=== PATIENT | male | born 1990 | race American Indian/Alaskan Native ===

== ENCOUNTER 2020-11-01 10:12 | Emergency (ER) | payer SELFPAY ==
[2020-11-01 10:24] VITALS: BP 125/83
[2020-11-01] MEDS ORDERED: DIPHtheria,PERTUSSIS(ACELL),TETANUS VACCINE/PF 0.5 ML VIAL IM ONE (10:32)
[2020-11-01] MEDS ORDERED: LIDOCAINE (1%) 10 MG/1 ML VIAL 20 ML MDV INFILTRATI ONE (10:32)
--- NOTE | 2020-11-01 10:37 | Emergency Department Report ---
- General Chief Complaint: Extremity Injury, Upper Stated Complaint: DEEP CUT Time Seen by Provider: 11/01/20 10:23 Source: patient Mode of arrival: Ambulatory Limitations: No Limitations - History of Present Illness Initial Comments: Patient is a 30-year-old male presents emergency room with complaints of a laceration to the left palm that occurred at 3 PM yesterday. He states that he was using a crap game box person to cut a box and accidentally slipped and cut himself. He states initially there was bleeding but it has since improved. He states he has been cleaning it and keeping it covered with gauze. He denies any numbness or weakness. He denies any foreign body sensation. He is moving the hand and fingers without difficulty. He is right-hand dominant. He has a past medical history of PUD. No allergies medications. - Related Data Home Medications Medication Instructions Recorded Confirmed Last Taken Prevacid 1 tab PO DAILY 11/01/20 11/01/20 Unknown Previous Rx's Medication Instructions Recorded Last Taken Type cephALEXin [Keflex] 500 mg PO QID 7 Days #28 cap 11/01/20 Unknown Rx Allergies Allergy/AdvReac Type Severity Reaction Status Date / Time No Known Allergies Allergy Unverified 11/01/20 10:17 ED Review of Systems ROS: Stated complaint: DEEP CUT Other details as noted in HPI Comment: All other systems reviewed and negative ED Past Medical Hx - Past Medical History Previous Medical History?: Yes Additional medical history: Peptic ulcer disease - Surgical History Past Surgical History?: No - Social History Smoking Status: Current Every Day Smoker Substance Use Type: Marijuana, Prescribed - Medications Home Medications: Home Medications Medication Instructions Recorded Confirmed Last Taken Type Prevacid 1 tab PO DAILY 11/01/20 11/01/20 Unknown History cephALEXin [Keflex] 500 mg PO QID 7 Days #28 cap 11/01/20 Unknown Rx ED Physical Exam - General Limitations: No Limitations General appearance: alert, in no apparent distress - Head Head exam: Present: atraumatic, normocephalic - Eye Eye exam: Present: normal appearance - ENT ENT exam: Present: mucous membranes moist - Respiratory Respiratory exam: Absent: respiratory distress, accessory muscle use - Neurological Exam Neurological exam: Present: alert, oriented X3 - Psychiatric Psychiatric exam: Present: normal affect, normal mood - Skin Skin exam: Present: warm, dry, other (2 cm laceration present to the palmar surface of the left hand, no active bleeding, appears clean and dry, small amount of subcutaneous tissue involvement, no muscle/tendon involvement, no foreign body, FROM of the left wrist, hand, and digits, neurovascularly intact) ED Course Vital Signs 11/01/20 10:21 Temperature 97.9 F Pulse Rate 104 H Respiratory 18 Rate Blood Pressure 125/83 O2 Sat by Pulse 98 Oximetry - Laceration /Wound Repair Left Palm Hand Wound Location: upper extremity (palmar surface left hand) Wound Length (cm): 2 Wound's Depth, Shape: superficial Wound Explored: clean Irrigated w/ Saline (ccs): 100 Betadine Prep?: Yes Anesthesia: 1% Lidocaine Volume Anesthetic (ccs): 4 Wound Repaired With: sutures Suture Size/Type: 4:0, proline Number of Sutures: 1 (running) Layer Closure?: No Sterile Dressing Applied?: Yes Progress: Wound irrigated with saline and thoroughly scrubbed with Betadine, no foreign body involvement, no muscle or tendon vomit, 4 cc of 1% lidocaine with epinephrine used as anesthetic, Betadine prep again, sterile gloves worn, sterile drapes used, 4-0 Prolene used for skin closure, one running stitch placed loosely due to delayed closure, patient tolerated well, no complications, bleeding controlled, sterile dressing applied ED Medical Decision Making - Medical Decision Making Patient is a 30-year-old male presents emergency room with complaints of a laceration to the left palm that occurred at 3 PM yesterday. He states that he was using a crap game box person to cut a box and accidentally slipped and cut himself. He states initially there was bleeding but it has since improved. He states he has been cleaning it and keeping it covered with gauze. He denies any numbness or weakness. He denies any foreign body sensation. He is moving the hand and fingers without difficulty. He is right-hand dominant. He has a past medical history of PUD. No allergies medications. VSS. on exam: 2 cm laceration present to the palmar surface of the left hand, no active bleeding, appears clean and dry, small amount of subcutaneous tissue involvement, no muscle/tendon involvement, no foreign body, FROM of the left wrist, hand, and digits, neurovascularly intact. Laceration repaired per procedure note loosely. Patient states his tetanus is already up-to-date. Patient given prescription for Keflex. Advised patient Please take medication as prescribed. May take Tylenol or ibuprofen as needed for any discomfort. Please keep area clean, dry, covered. Wash with antibacterial soap and water twice a day and pat dry. No hot tub, no pool, no soaking in water. Showering is fine. Follow-up with your primary care doctor for reexamination. Sutures need to be removed in 10 days, may do this at the emergency room, urgent care, or primary care doctor. Return to emergency room for any new or worsening symptoms or any signs of infection despite antibiotics. Critical care attestation.: If time is entered above; I have spent that time in minutes in the direct care of this critically ill patient, excluding procedure time. ED Disposition Clinical Impression: Laceration of left palm Qualifiers: Encounter type: initial encounter Qualified Code(s): S61.412A - Laceration without foreign body of left hand, initial encounter Disposition: TO HOME OR SELFCARE Is pt being admited?: No Does the pt Need Aspirin: No Condition: Stable Instructions: Sutures, Brenda, or Adhesive Wound Closure Additional Instructions: Please take medication as prescribed. May take Tylenol or ibuprofen as needed for any discomfort. Please keep area clean, dry, covered. Wash with antibacterial soap and water twice a day and pat dry. No hot tub, no pool, no soaking in water. Showering is fine. Follow-up with your primary care doctor for reexamination. Sutures need to be removed in 10 days, may do this at the emergency room, urgent care, or primary care doctor. Return to emergency room for any new or worsening symptoms or any signs of infection despite antibiotics. Prescriptions: cephALEXin [Keflex] 500 mg PO QID 7 Days #28 cap Referrals: ASHLEIGH PATRICIO MD [Primary Care Provider] - 3-5 Days RANI ACEVES MD [Staff Physician] - 3-5 Days [facility] [Provider Group] - 3-5 Days Time of Disposition: 11:04 Print Language: AZERI
== END 2020-11-01 11:30 | disposition home or self-care (01) ==
LOC: ED 10:12
DX: S61.412A Laceration without foreign body of left hand, initial encounter (principal); F17.200 Nicotine dependence, unspecified, uncomplicated; F12.90 Cannabis use, unspecified, uncomplicated; Z79.899 Other long term (current) drug therapy; W01.0XXA Fall on same level from slipping, tripping and stumbling without subsequent striking against object, initial encounter; Y93.89 Activity, other specified; Y92.89 Other specified places as the place of occurrence of the external cause; Y99.8 Other external cause status

== ENCOUNTER 2021-05-04 07:45 | Emergency (ER) | payer SELFPAY ==
--- NOTE | 2021-05-04 08:18 | XRay Report ---
CHEST 2 VIEWS INDICATION: chest pain. COMPARISON: None FINDINGS: Support devices: None. Heart: Within normal limits. Lungs/pleura: No acute air space or interstitial disease. No pneumothorax. Additional findings: None. IMPRESSION: No acute findings. Normal chest x-ray. Signer Name: Shadi Saldivar Jr, MD Signed: 05/04/2021 8:14 AM Workstation Name: [id number]
--- NOTE | 2021-05-04 08:38 | Emergency Department Report ---
ED Chest Pain HPI - General Chief Complaint: Chest Pain Stated Complaint: CHEST PAIN, UPPER BACK PAIN Time Seen by Provider: 05/04/21 08:07 Source: patient Mode of arrival: Ambulatory Limitations: No Limitations - History of Present Illness Initial Comments: 31-year-old male with past medical history of peptic ulcer disease and tobacco use and marijuana use presents to the ER today with complaints of left upper back and left sided chest pain. Patient states that his symptoms started last night while she was eating. He describes it as a constant but waxing and waning pressure/sharp pain. He states that the pain seems to be worse when he lays on his right side but also when he moves in certain positions. He states that it also hurts when he takes a very deep breath. He states that he feels short of breath when the pain intensifies but is mainly when he is laying on his right side of when he moves in certain position. He states that Max his pain was 8 out of 10. He states when he remains still his pain is 2 out of 10. Currently his pain is 4 out of 10. He denies any coughing, wheezing, nausea, vomiting, UTI symptoms, bowel changes or abdominal pain. 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 He denies any lower extremity swelling or calf pain. He denies any DVT/PE risk factors. He states that his dad has a history of heart disease and his first ME was around his age and so when he started with the pain he got scared and came in to get checked. He denies alcohol abuse, and other than the marijuana use he denies any history of other illicit drug use. MD Complaint: chest pain, other (Left upper back pain) -: days(s) (1) - Related Data Home Medications Medication Instructions Recorded Confirmed Last Taken Prevacid 1 tab PO DAILY 11/01/20 11/01/20 Unknown Previous Rx's Medication Instructions Recorded Last Taken Type cephALEXin [Keflex] 500 mg PO QID 7 Days #28 cap 11/01/20 Unknown Rx Doxycycline Hyclate 100 mg PO Q12HR #14 tablet. 05/04/21 Unknown Rx Allergies Allergy/AdvReac Type Severity Reaction Status Date / Time No Known Allergies Allergy Verified 05/04/21 07:57 Heart Score - HEART Score History: Slightly suspicious EKG: Normal Age: < 45 Risk factors: 1-2 risk factors Troponin: < normal limit HEART Score: 1 - EKG Read Time Time EKG Completed: 07:51 EKG Read Time: 07:56 - Critical Actions Critical Actions: 0-3 pts:0.9-1.7%risk of adverse cardiac event.Candidate for discharge ED Review of Systems ROS: Stated complaint: CHEST PAIN, UPPER BACK PAIN Other details as noted in HPI Comment: All other systems reviewed and negative Constitutional: denies: chills, fever Eyes: denies: eye pain, eye discharge, vision change ENT: denies: ear pain, throat pain Respiratory: shortness of breath. denies: cough, SOB with exertion, SOB at rest, wheezing Cardiovascular: chest pain Gastrointestinal: denies: abdominal pain, nausea, diarrhea, constipation, hematemesis Genitourinary: denies: urgency, dysuria, frequency, hematuria, discharge, testicular pain, testicular mass Musculoskeletal: back pain. denies: joint swelling, arthralgia Skin: denies: rash, lesions, change in color, change in hair/nails, pruritus Neurological: denies: headache, weakness, paresthesias, confusion, abnormal gait, vertigo Psychiatric: denies: anxiety, depression, auditory hallucinations, visual hallucinations, homicidal thoughts Hematological/Lymphatic: denies: easy bleeding, easy bruising, swollen glands ED Past Medical Hx - Past Medical History Previous Medical History?: Yes Additional medical history: Peptic ulcer disease - Surgical History Past Surgical History?: No - Social History Smoking Status: Current Every Day Smoker Substance Use Type: Marijuana, Prescribed - Medications Home Medications: Home Medications Medication Instructions Recorded Confirmed Last Taken Type Prevacid 1 tab PO DAILY 11/01/20 11/01/20 Unknown History cephALEXin [Keflex] 500 mg PO QID 7 Days #28 cap 11/01/20 Unknown Rx Doxycycline Hyclate 100 mg PO Q12HR #14 tablet. 05/04/21 Unknown Rx ED Physical Exam - General Limitations: No Limitations General appearance: alert, in no apparent distress - Head Head exam: Present: atraumatic, normocephalic, normal inspection - Eye Eye exam: Present: normal appearance, PERRL, EOMI Pupils: Present: normal accommodation - ENT ENT exam: Present: normal exam, mucous membranes moist - Neck Neck exam: Present: normal inspection, full ROM. Absent: meningismus - Respiratory Respiratory exam: Present: normal lung sounds bilaterally, chest wall tenderness (Mild tenderness to palpation to the left upper anterior chest wall). Absent: respiratory distress, wheezes, rales, rhonchi - Cardiovascular Cardiovascular Exam: Present: regular rate, normal rhythm, normal heart sounds - GI/Abdominal GI/Abdominal exam: Present: soft. Absent: distended, tenderness, guarding, rebound - Extremities Exam Extremities exam: Present: normal inspection, full ROM. Absent: tenderness, pedal edema, joint swelling, calf tenderness - Back Exam Back exam: Present: normal inspection, full ROM, other (Patient has diffuse muscle/soft tissue tenderness to the left upper and mid thoracic back and posterior chest wall). Absent: vertebral tenderness - Neurological Exam Neurological exam: Present: alert, oriented X3, CN II-XII intact, normal gait. Absent: motor sensory deficit - Psychiatric Psychiatric exam: Present: normal affect, normal mood - Skin Skin exam: Present: intact ED Course Vital Signs 05/04/21 05/04/21 05/04/21 07:56 08:45 09:01 Temperature 98.2 F Pulse Rate 75 68 56 L Respiratory 20 22 23 Rate Blood Pressure 120/80 107/45 112/56 O2 Sat by Pulse 100 97 97 Oximetry 05/04/21 05/04/21 05/04/21 10:01 11:01 12:01 Temperature Pulse Rate 52 L 59 L 52 L Respiratory 13 23 21 Rate Blood Pressure 103/65 99/59 99/65 O2 Sat by Pulse 96 97 95 Oximetry KAMARI score - Kamari Score Age > 65: (0) No Aspirin use within the Past 7 Days: (0) No 3 or more CAD Risk Factors: (0) No 2 or more Angina events in past 24 hrs: (0) No Known CAD with more than 50% Stenosis: (0) No Elevated Cardiac Markers: (0) No ST Deviation Greater than 0.5mm: (0) No KAMARI Score: 0 ED Medical Decision Making - Lab Data Result diagrams: 05/04/21 08:40 05/04/21 08:40 - EKG Data EKG shows normal: sinus rhythm Rate: normal (66) - EKG Data Interpretation: normal EKG 05/04/21 12:18 Repeat EKG done at 1216 -bradycardia with a heart rate of 54 otherwise normal. No STEMI, or acute ischemic changes. - Radiology Data Radiology results: report reviewed Patient: BRAVO HERNANDEZ MR #: [id number] : 1990 Acct:[id number] Age/Sex: 31 / M ADM Date: 05/04/21 Loc: ED Attending Dr: Ordering Physician: JULIA RDZ MD Date of Service: 05/04/21 Procedure(s): XR chest routine 2V Accession Number(s): [id number] cc: JULIA RDZ MD Fluoro Time In Minutes: CHEST 2 VIEWS INDICATION: chest pain. COMPARISON: None FINDINGS: Support devices: None. Heart: Within normal limits. Lungs/pleura: No acute air space or interstitial disease. No pneumothorax. Additional findings: None. IMPRESSION: No acute findings. Normal chest x-ray. Signer Name: Shadi Larkin Jr, MD Signed: 05/04/2021 8:14 AM Workstation Name: [id number] Transcribed By: TTR Dictated By: SHADI LARKIN JR, MD Electronically Authenticated By: SHADI LARKIN JR, MD Signed Date/Time: 05/04/21813 DD/ 2 TD/TT: - Medical Decision Making 1210: Patient currently resting comfortably. He is not in any acute distress. He is not toxic or ill appearing. He is neurologically intact Labs reviewed - CBC/CMP shows no significant abnormalities. He has had 2 - troponin. Lipase is normal. Urinalysis is concerning for UTI, urine culture is pending. EKGs shows no STEMI or acute ischemic changes or significant dysrhythmias. Chest x-ray shows nothing acute. Patient has HEART Score of 1; PERC 0; Patient's history, exam, diagnostic testing and current condition do not suggest that this patient is having acute myocardial infarction, significant arrhythmia, unstable angina, esophageal perforation, pulmonary embolism, aortic dissection, pneumothorax, severe pneumonia, sepsis or other significant pathology that would warrant further testing, continued ED treatment, admission or cardiology or other specialist consultation at this time. The vital signs have been stable. Suspect that his pain could be related to musculoskeletal pain at this time. Patient UA is concerning for UTI, he denies any penile discharge or dysuria and denies any recent new sexual partners but he is a 31-year-old male and will be treated for possible gonorrhea and chlamydia. Discussed lab, imaging and EKG results with patient. Also discussed urinalysis results and concern for possible gonorrhea and chlamydia prophylactic treatment with patient. Recommend to patient to follow-up closely with primary care doctor listed on discharge instructions. Patient expressed understanding of instructions and agree with plan. Patient was stable at time of discharge. Critical care attestation.: If time is entered above; I have spent that time in minutes in the direct care of this critically ill patient, excluding procedure time. ED Disposition Clinical Impression: Nonspecific chest pain, Musculoskeletal pain, UTI (urinary tract infection) Disposition: TO HOME OR SELFCARE Is pt being admited?: No Does the pt Need Aspirin: No Condition: Stable Instructions: Nonspecific Chest Pain, Adult, Urinary Tract Infection, Adult, Musculoskeletal Pain Additional Instructions: Take the doxycycline as prescribed. Take to completion. I recommend taking tylenol and or ibuprofen for pain. Follow up with Primary care physician listed on d/c instructions. Return to ED if worse. Prescriptions: Doxycycline Hyclate 100 mg PO Q12HR #14 tablet. Referrals: [facility] [Provider Group] - 3-5 Days Forms: Work/School Release Form(ED) Time of Disposition: 12:02
[2021-05-04 08:48] LABS: Basophils # (Auto) 0.1 K/mm3 (0.0-0.1); Basophils % (Auto) 0.7 % (0.0-1.8); Eosinophils # (Auto) 0.3 K/mm3 (0.0-0.4); Eosinophils % (Auto) 4.1 % (0.0-4.3); Hematocrit 39.7 % (35.5-45.6); Hemoglobin 13.6 gm/dl (11.8-15.2); Lymphocytes % (Auto) 37.7 % (13.4-35.0); Mean Corpuscular HGB Conc 34 % (32-34); Mean Corpuscular Volume 91 fl (84-94); Monocytes # (Auto) 0.7 K/mm3 (0.0-0.8); Monocytes % (Auto) 9.4 % (0.0-7.3); Platelet Count 249 K/mm3 (140-440); Red Blood Count 4.35 M/mm3 (3.65-5.03); Red Cell Distribution Width 14.4 % (13.2-15.2)
[2021-05-04 09:12] LABS: Alanine Aminotransferase 20 units/L (7-56); Albumin 3.9 g/dL (3.9-5); BUN/Creatinine Ratio 6; Blood Urea Nitrogen 5 mg/dL (9-20); Calcium 9.2 mg/dL (8.4-10.2); Hemolysis Index 7
[2021-05-04 09:36] LABS: Bacteria,Urine 1+ /HPF (Negative); Bilirubin,Urine NEG (Negative); Blood,Urine NEG (Negative); Color,Urine Straw (Yellow); Protein,Urine <15 mg/dL mg/dL (Negative); Urobilinogen,Urine < 2.0 mg/dL (<2.0)
[2021-05-04 09:42] LABS: Amphetamine Screen,Urine Negative; Benzodiazepines Screen,Urine Negative; Cocaine Screen,Urine Negative; Methadone Screen,Urine Negative; Opiate Screen,Urine Negative
[2021-05-04 10:16] LABS: Cannabinoid Screen,Urine PRESUMPTIVE POSITIVE
--- NOTE | 2021-05-04 10:25 | Electrocardiograph Report ---
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
[2021-05-04] MEDS ORDERED: LIDOCAINE-MPF (1%) 10 MG/1 ML VIAL 5 ML INFILTRATI ONE (12:03)
[2021-05-04 12:20] VITALS: BP 99/65
--- NOTE | 2021-05-06 12:13 | Electrocardiograph Report ---
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
== END 2021-05-04 12:29 | disposition home or self-care (01) ==
LOC: ED 07:45
DX: R07.89 Other chest pain (principal); M79.18 Myalgia, other site; M54.6 Pain in thoracic spine; N39.0 Urinary tract infection, site not specified; F17.200 Nicotine dependence, unspecified, uncomplicated; F12.90 Cannabis use, unspecified, uncomplicated; Z98.890 Other specified postprocedural states; Z79.899 Other long term (current) drug therapy
CPT/HCPCS: 36415; 71046; 80053; 80307; 81001; 83690; 84484; 85025; 87086; 93005; 96372; 99284; J0696